=== PATIENT | female | born 1960 | race Caucasian/White ===

== ENCOUNTER 2019-04-13 13:01 | Emergency (ER) | payer MEDICARE, MEDICAID ==
[~2019-04-13] VITALS: Ht 169.4 cm; Wt 98.6 kg
[2019-04-13 13:10] VITALS: Ht 169.4 cm; Wt 98.6 kg
[2019-04-13] MEDS ORDERED: LYRICA200 MG PO (13:12)
[2019-04-13] MEDS ORDERED: METOPROLOL TART25 MG PO (13:12)
[2019-04-13] MEDS ORDERED: METHOCARBAMOL750 MG NG (13:12)
[2019-04-13] MEDS ORDERED: MORPHINE SULFAT15 M4 PO (13:13)
[2019-04-13] MEDS ORDERED: VITAMIN B-1100 M1 PO (13:14)
[2019-04-13 13:56] LABS: BASOPHILS 0.1 % (0-2); EOSINOPHILS 2.1 % (0-7); HEMATOCRIT 34.7 % (36.0-48.0); HEMOGLOBIN 10.6 g/dL (12-16); IMMATURE GRANULOCYTES 0.2 % (0-5); LYMPHOCYTES 28.3 % (15-50); MCH 27.1 pg (26.0-34.0); MCHC 30.5 g/dL (31.0-37.0); MCV 88.7 fL (80.0-100.0); MEAN PLATELET VOLUME 10.4 fL (7.4-10.4); MONOCYTES 3.7 % (2-11); NEUTROPHILS 65.6 % (40-80); PLATELET COUNT 199 10x3/uL (130-400); RBC 3.91 10x6/uL (4.00-5.40); RDW 20.2 % (11.5-14.5); WBC 11.8 10x3/uL (4.8-10.8)
[2019-04-13 14:03] LABS: APTT 29.1 SECONDS (22.8-39.4); CALC OSMOLALITY 279 mosm/kg (275-300); CALCIUM 8.3 mg/dL (8.5-10.1); CARBON DIOXIDE 26.8 mmol/L (21.0-32.0); CHLORIDE - SERUM 109 mmol/L (98-107); CREATININE - SERUM 1.2 mg/dL (0.6-1.3); GLUCOSE 89 mg/dL (74-106); POTASSIUM - SERUM 4.7 mmol/L (3.5-5.1); PROTIME 12.7 SECONDS (11.6-15.0); SODIUM 141 mmol/L (136-145); UREA NITROGEN 12 mg/dL (7-18); eGFR NON AFRICAN AMERICAN 49 mL/min (90-120)
[2019-04-13 14:18] LABS: ALKALINE PHOSPHATASE 68 U/L (46-116); ALT (SGPT) 41 U/L (10-68); BILIRUBIN - TOTAL 0.26 mg/dL (0.2-1.3); CKMB 4.5 U/L (0.0-3.6); CREATINE KINASE 67 UL (21-215); MAGNESIUM - SERUM 2.2 mg/dL (1.8-2.4); PROTEIN - SERUM 6.6 g/dL (6.4-8.2)
[2019-04-13 14:22] LABS: TROPONIN-I < 0.017 ng/mL (0.000-0.060)
[2019-04-13 16:41] VITALS: BP 118/67
== END 2019-04-13 17:07 | disposition home or self-care (01) ==
LOC: D.ER 13:01
PROVIDERS: Family Medicine
DX: R00.1 Bradycardia, unspecified (principal); R42 Dizziness and giddiness; I10 Essential (primary) hypertension; J45.909 Unspecified asthma, uncomplicated; R51 Headache